=== PATIENT | male | born 2000 | race American Indian/Alaskan Native ===

== ENCOUNTER 2020-09-12 15:06 | Emergency (ER) | payer SELFPAY ==
[2020-09-12 15:46] VITALS: BP 148/95
--- NOTE | 2020-09-12 17:11 | Emergency Department Report ---
ED General Adult HPI - General Chief complaint: Chest Pain Stated complaint: CHEST PAINS Time Seen by Provider: 09/12/20 17:08 Source: patient Mode of arrival: Ambulatory Limitations: No Limitations - History of Present Illness Initial comments: 20-year-old male patient presents to the emergency department with complaints of right sided chest pain starting yesterday. Patient states he was lying down when the pain began. Pain is worse with movement. Describes the pain as "sharp." Patient does not use tobacco. No known history of hypertension, hyp erlipidemia, diabetes. No known family history of early heart disease. Denies fever, cough, shortness of breath, wheezing, nausea, vomiting, diaphoresis, palpitations, lower extremity pain/swelling. Denies all other complaints at this time. Severity scale (0 -10): 8 - Related Data Previous Rx's Medication Instructions Recorded Last Taken Type Naproxen 500 mg PO BID #20 tablet 09/12/20 Unknown Rx Allergies Allergy/AdvReac Type Severity Reaction Status Date / Time No Known Allergies Allergy Unverified 09/12/20 15:43 ED Review of Systems ROS: Stated complaint: CHEST PAINS Other details as noted in HPI Other: GENERAL: Negative for fever, chills, weight change, anorexia, fatigue. ENT: Negative for ear pain, difficulty hearing, sore throat, nasal congestion, epistaxis. CARDIOVASCULAR: Positive for chest pain. PULMONARY: Negative for cough, dyspnea, wheezing, orthopnea, cyanosis. GASTROINTESTINAL: Negative for abdominal pain, nausea, vomiting, diarrhea, constipation. MUSCULOSKELETAL: Negative for joint pain, joint swelling, myalgias, back pain, neck pain. NEUROLOGICAL: Negative for headache, seizure, syncope, paresthesias, weakness. INTEGUMENTARY: Negative for erythema, rash, diaphoresis, laceration, ecchymosis. HEMATOLOGICAL: Negative for hemoptysis, hematemesis, hematochezia, hematuria. PSYCHIATRIC: Negative for hallucinations, suicidal ideation, homicidal ideation, anxiety, depression. ED Past Medical Hx - Past Medical History Previous Medical History?: No - Surgical History Past Surgical History?: Yes Additional Surgical History: T&A - Medications Home Medications: Home Medications Medication Instructions Recorded Confirmed Last Taken Type Naproxen 500 mg PO BID #20 tablet 09/12/20 Unknown Rx ED Physical Exam - General Limitations: No Limitations - Other Other exam information: General: Awake and alert. No acute distress. Head: Atraumatic, normocephalic. Eyes: EOMI. Pupils are equal and round. Normal sclera and conjunctiva. ENT: Oral mucosa is moist. Normal pharyngeal exam. Neck: Supple. No lymphadenopathy. Pulmonary: No respiratory distress. Clear to auscultation bilaterally. Cardiac: Regular rate and rhythm. Pulses are palpable and equal bilaterally. No lower extremity cyanosis or edema. Skin: Warm and dry. No rashes. Abdomen: Soft, non-tender, non-protuberant. No guarding, rigidity, or rebound. Bowel sounds are normal. No organomegaly or masses noted. Back: Normal alignment. No CVA tenderness. Extremities: Symmetrical. Full range of motion intact. Neurological: Alert and oriented, appropriately interactive, no focal deficits. Psych: Cooperative. Appropriate mood and affect. Speech is evenly metered. Thoughts are logically construed. ED Course Vital Signs 09/12/20 15:44 Temperature 98.7 F Pulse Rate 104 H Respiratory 20 Rate Blood Pressure 148/95 [Right] O2 Sat by Pulse 96 Oximetry ED Medical Decision Making - EKG Data 09/12/20 17:10 EKG shows normal sinus rhythm with a ventricular rate of 96 bpm. Normal axis. Normal NM interval. Normal QT interval. Good R wave progression. No ST segment changes. Over read by attending emergency physician, who agrees with this interpretation. - Medical Decision Making Differential diagnosis including but not limited to: cardiac arrhythmia, pericarditis, pericardial effusion/cardiac tamponade, pneumothorax, pneumonia, pleural effusion Tachycardia initially present during triage resolved without intervention; repeat heart rate 96 bpm during medical screening examination. Patient presents to the emergency department with signs and/or symptoms that arise low risk clinical suspicion for pulmonary embolism. The patient has none of the following clinical criteria: age >50, heart rate >100, room air O2 saturation <94%, history of DVT/PE, recent trauma/surgery, hemoptysis, exogenous estrogen, or signs/symptoms of DVT. As a result, this patient has very low probability of pulmonary embolism and further testing is not indicated. On reevaluation, patient remains stable. EKG without acute injury pattern. Chest x-ray is negative. Exceedingly low risk for acute coronary syndrome given patient's age and absence of risk factors. History and exam findings suggestive of musculoskeletal chest wall pain. Patient will be discharged home with appropriate analgesics and referred to primary care provider for close outpatient follow-up. Patient expressed understanding and is agreeable to plan of care. Strict return precautions provided. Repeat exam is unremarkable and benign. History, exam, diagnostic testing, and current condition do not suggest worrisome pathology to warrant further testing, continued ED treatment, admission, or surgical evaluation at this point. Given the low probability of a significant medical illness, it would be more likely to result in harm than benefit to perform further testing at this stage. Discussed findings, presumptive diagnosis, need for follow-up and specific signs/symptoms that should prompt immediate return to the emergency department. Instructions were explained in detail to the patient in addition to giving written discharge information. Patient expressed understanding and was given the opportunity to ask questions, all of which were satisfactorily answered prior to discharge home. Critical care attestation.: If time is entered above; I have spent that time in minutes in the direct care of this critically ill patient, excluding procedure time. ED Disposition Clinical Impression: Chest pain Qualifiers: Chest pain type: unspecified Qualified Code(s): R07.9 - Chest pain, unspecified Disposition: TO HOME OR SELFCARE Is pt being admited?: No Does the pt Need Aspirin: No Condition: Stable Instructions: Nonspecific Chest Pain, Adult Additional Instructions: Take Tylenol every 4 hours as needed for pain. Take Naprosyn twice daily with food as needed for pain. Apply heat to affected area as needed for pain. Follow-up with primary care provider next week. Call Tuesday to schedule an appointment. See referral information below. Return to the emergency department immediately for new or worsening symptoms. Prescriptions: Naproxen 500 mg PO BID #20 tablet Referrals: KASHMIR PARRA MD [Primary Care Provider] - 3-5 Days DAVIDA MORALES MD [Staff Physician] - 3-5 Days [facility] [Outside] - 3-5 Days [facility] [Outside] - 3-5 Days [facility] [Outside] - 3-5 Days [facility] [Provider Group] - 3-5 Days Time of Disposition: 18:35
--- NOTE | 2020-09-12 18:29 | XRay Report ---
CHEST PA AND LATERAL VIEWS INDICATION: chest pain. COMPARISON: None. FINDINGS: Support devices: None. Heart: Within normal limits. Lungs/Pleura: No acute pulmonary or pleural findings. IMPRESSION: 1. No acute findings. Signer Name: Aidan Villegas MD Signed: 09/12/2020 6:24 PM Workstation Name: [id number]
--- NOTE | 2020-09-16 09:47 | Electrocardiograph Report ---
[facility] Test Date: 2020-09-12 Test Time: 15:33:41 Pat Name: MALYIN TIDWELL Department: Room: Gender: M Official Greeter: THERESE : 2000 Requested By: MAKAYLA LAURENT Order Number: [id number] Reading MD: Erickson Shepard Measurements Intervals [place] Rate: 96 P: 48 AK: 132 QRS: 10 QRSD: 80 T: 33 QT: 330 QTc: 418 Interpretive Statements Sinus rhythm Consider anteroseptal infarct No previous ECG available for comparison Electronically Signed On 09-16-2020 9:47:35 EDT by Erickson Shepard
== END 2020-09-12 18:40 | disposition home or self-care (01) ==
LOC: ED 15:06
DX: R07.89 Other chest pain (principal); Z98.890 Other specified postprocedural states; Z79.899 Other long term (current) drug therapy
CPT/HCPCS: 71046; 93005; 99283